=== PATIENT | female | born 1975 | race Native Hawaiian/Other Pacific Islander ===

== ENCOUNTER → 2022-03-12 | Outpatient (CLI) | payer BC ==
[~2022-03-12] MED LIST: CATHETER FLUSH 10 ML SYR IV PRN; IOHEXOL 350 MG/ML 100 ML (OMNIPAQUE 350) VIAL IV ONE; NS 100 ML (IVPB) BAG IV ONE
--- NOTE | 2022-03-12 12:13 | Diagnostic Imaging Report ---
PROCEDURE: CT abdomen and pelvis with contrast. TECHNIQUE: Multiple contiguous axial images were obtained through the abdomen and pelvis after administration of intravenous contrast. Auto Exposure Controls were utilized during the CT exam to meet ALARA standards for radiation dose reduction. All CT scans use one or more of the following dose optimizing techniques: automated exposure control, MA and/or KvP adjustment based on patient size and exam type or iterative reconstruction. INDICATION: Possible umbilical hernia. Patient status post tummy tuck surgery 1-1/2 years ago. No prior studies are available for comparison. The lung bases are clear. Liver contains several small circumscribed low-attenuation lesions, too small to characterize but likely cysts. Gallbladder is unremarkable. No biliary ductal dilatation. Pancreas and spleen are unremarkable. No adrenal mass is identified. There are several hyperdense foci within both kidneys, suggestive of a nonobstructing calculi. Largest is lower pole of the right kidney measuring 5 mm. There is no hydronephrosis. Aorta is nonaneurysmal. The small and large bowel loops are normal caliber. There is no obstruction. Uterus is unremarkable. Bladder is decompressed. There are postoperative changes anterior abdominal wall. No definite abdominal wall defect or hernia is detected. There is no free fluid or fluid collection. The bony structures are nonacute. IMPRESSION: 1. Bilateral nonobstructing nephrolithiasis. 2. Postoperative changes in the anterior abdominal wall. No definite abdominal wall defect or hernia is detected. Dictated by: Dictated on workstation # [id number]
== END ==
LOC: RAD 12:15
DX: N20.0 Calculus of kidney (principal); K21.9 Gastro-esophageal reflux disease without esophagitis
CPT/HCPCS: 74177